=== PATIENT | female | born 1965 | race Caucasian/White ===

== ENCOUNTER 2020-02-24 15:14 | Emergency (ER) | payer BC, MEDICAID ==
[~2020-02-24] VITALS: Ht 177.8 cm; Wt 72.6 kg
[~2020-02-24 15:14] MED LIST: GABA300C10; PAR20T; QUET25TA37
[2020-02-24 15:21] VITALS: BP 126/91
[2020-02-24] MEDS ORDERED: ACETAMINOPHEN 325 MG TAB PO ONE (15:45)
[2020-02-24] MEDS ORDERED: cefTRIAXone SOD 1,000 MG VL IM ONE (16:30)
[2020-02-24] MEDS ORDERED: ONDANSETRON ODT 4 MG TAB PO ONE (16:30)
[2020-02-24] MEDS ORDERED: KETOROLAC TROMETH 60MG/2ML VIAL IM ONE (16:30)
== END 2020-02-24 17:35 | disposition home or self-care (01) ==
LOC: ER 15:14
DX: S66.911A Strain of unspecified muscle, fascia and tendon at wrist and hand level, right hand, initial encounter (principal); S16.1XXA Strain of muscle, fascia and tendon at neck level, initial encounter; S60.512A Abrasion of left hand, initial encounter; S60.511A Abrasion of right hand, initial encounter; V22.4XXA Motorcycle driver injured in collision with two- or three-wheeled motor vehicle in traffic accident, initial encounter; Y93.55 Activity, bike riding; Y92.89 Other specified places as the place of occurrence of the external cause; Y99.8 Other external cause status
CPT/HCPCS: 29125; 70450; 70486; 72125; 73110; 73130; 96372; 99285; J0696; J1885; Q0162

== ENCOUNTER 2025-05-10 15:16 | Emergency (ER) | payer BC ==
[~2025-05-10] VITALS: Ht 177.8 cm; Wt 69.0 kg
[~2025-05-10 15:16] MED LIST changes: +GABA-1250; -GABA300C10
--- NOTE | 2025-05-10 15:40 | ED.PDOC ---
HPI Comments This is a 59 years old female with past medical history of hyperlipidemia, chronic neck and right arm pain presented to the ER with a complaint of intermittent pinch like chest pain since last night. The patient states that the 1st time she felt chest pain last night during the sleep which is pinch like, 3/10 localized the left upper chest not associated with any shortness of breath, dizziness, diaphoresis, nausea or vomiting. She went to urgent care today and the EKG revealed sinus rhythm, RSR in V1 and V2 and came to the ER for further evaluation of chest pain. PCP: Dr. Dejesus Chief Complaint: Chest Pain Time Seen by MD: 15:19 Primary Care Provider: KARO Allergies: Coded Allergies: Penicillin G (Verified Allergy, Unknown, 02/24/20) Uncoded Allergies: BEE STING (Allergy, Unknown, 02/24/20) Home Meds Reported Medications Quetiapine Fumerate (Seroquel) 25 Mg Tab, BID 06/09/13 Paroxetine (PAXIL TABLET) 20 Mg Tb, 40 MG DAILY 06/09/13 [[id number] Mg] (Gabapentin) 300 MG CAP No Conflict Check, MG 04/19/13 Information Source: Patient Mode of Arrival: Ambulatory Severity: Mild Timing: Hours Duration: Since onset Prehospital treatment: 12 Lead EKG Location: Chest (L) Radiation: No Radiation Quality: Sharp Onset: While Asleep Cardiac Risk Factors: Hyperlipidemia PE Risk Factors: None History of: None Modifying Factors: Nothing Associated Signs and Symptoms: None Past Medical History PAST MEDICAL HISTORY: High Lipids Surgical History: Appendectomy [employer] History: No Pertinent [employer]ICER History Family History Family History: Unknown Social History Smoker: Cigarettes, Less Than 1 Pack/Day Alcohol: Occasionally Drugs: Denies Drug Use Lives In: Home Constitutional: denies: chills, diaphoresis, fatigue, fever, malaise, sweats, weakness, others EENTM: denies: blurred vision, double vision, ear bleeding, ear discharge, ear drainage, ear pain, ear ringing, eye pain, eye redness, hearing loss, mouth pain, mouth swelling, nasal discharge, nose bleeding, nose congestion, nose pain, photophobia, tearing, throat pain, throat swelling, voice changes, others Respiratory: denies: cough, hemoptysis, orthopnea, SOB at rest, shortness of breath, SOB with excertion, stridor, wheezing, others Cardiovascular: reports: chest pain; denies: dizzy spells, diaphoresis, Dyspnea on exertion, edema, irregular heart beat, left arm pain, lightheadedness, palpitations, PND, syncope, others Gastrointestinal: denies: abdomen distended, abdominal pain, blood streaked bowels, constipated, diarrhea, dysphagia, difficulty swallowing, hematemesis, melena, nausea, poor appetite, poor fluid intake, rectal bleeding, rectal pain, vomiting, others Genitourinary: denies: abnormal vagina bleeding, burning, dyspareunia, dysuria, flank pain, frequency, hematuria, incontinence, pain, , vagina discharge, urgency, others Neurological: denies: dizziness, fainting, headache, left sided numbness, left sided weakness, numbness, paresthesia, pre-existing deficit, right sided numbness, right sided weakness, seizure, speech problems, tingling, tremors, w eakness, others Musculoskeletal: denies: back pain, gout, joint pain, joint swelling, muscle pain, muscle stiffness, neck pain, others Integumetry: denies: bruises, change in color, change in hair/nails, dryness, laceration, lesions, lumps, rash, wounds, others Allergic/Immunocompromised: denies: Difficulty Healing, Frequent Infections, Hives, Itching, others Hematologic/Lymphatic: denies: anemia, blood clots, easy bleeding, easy bruising, swollen glands, others Endocrine: denies: excessive hunger, excessive sweating, excessive thirst, excessive urination, flushing, intolerance to cold, intolerance to heat, unexplained weight gain, unexplained weight loss, others Psychiatric: denies: anxiety, bipolar disorder, depression, hopeless, panic disorder, schizophrenia, sleepless, suicidal, others Physical Exam General Appearance: Normal HEENT: Normal ENT Inspection, Pharynx Normal, TMs Normal Neck: Full Range of Motion, Non-Tender, Normal, Normal Inspection Respiratory: Chest Non-Tender, Lungs Clear, No Accessory Muscle Use, No Respiratory Distress, Normal Breath Sounds Cardiovascular: No Edema, No JVD, No Murmur, No Gallop, Normal Peripheral Pulses, Regular Rate/Rhythm Breast Exam: Deferred Gastrointestinal: No Organomegaly, Non Tender, No Pulsatile Mass, Normal Bowel Sounds, Soft Genitalia: Deferred Pelvic: Deferred Rectal: Deferred Extremities: No calf tenderness, Normal capillary refill, Normal inspection, Normal range of motion, Non-tender, No pedal edema Neurologic: NOT DONE Cerebellar Function: NOT DONE Reflexes: NOT DONE Skin: NOT DONE Peripheral Pulses: 2+ carotid (R), 2+ carotid (L), 2+ femoral (R), 2+ femoral (L), 2+ dorsalis pedis (R), 2+ dorsalis pedis (L), 2+ Radial (R), 2+ Radial (L), 2+ Brachial (R), 2+ Brachial (L) Lymphatic: NOT DONE EKG EKG : Cardiac Rhythm: NSR ST: Normal Comments Patient refused to do EKG here. Was a procedure done? Was a procedure done?: No CP Differential Dx Differential Diagnosis: N/A Differential Diagnosis: N/A Comment patient is normotensive Differential Diagnosis: Chest Wall Pain, Costochondritis Comment Musculoskeletal chest pain, costochondritis, GERD, gastritis X-Ray, Labs, Meds, VS Vital Signs Date Time Temp Pulse Resp B/P (MAP) Pulse Ox O2 Delivery O2 Flow Rate FiO2 05/10/25 15:18 97.7 74 16 123/70 93 97.7 Lab Test 05/10/25 16:08 Range/Units Troponin I High Sensitivity < 3 L </=34 ng/L X-Ray, Labs, Meds, VS Comment Refused to do EKG here. Chest x-ray revealed normal study and troponin is <3 Time of 1ST Reevaluation: 16:37 Reevaluation 1ST: Improved Patient Education/Counseling: Diagnosis, Treatment Family Education/Counseling: No Family Present Comments This is a 59 years old female presented to the ER the complaint of left-sided pinching like chest pain since last night prior to this visit. The patient had an EKG done in urgent care which revealed normal sinus rhythm and nonspecific ST-T changes The patient refused to do another EKG in the ER Chest x-ray revealed normal study and troponin is unremarkable less than 3 Advised the patient to follow up with PCP in 1 week SEPSIS Sepsis Screen Date sepsis recognized/suspect: May 10, 2025 Time Sepsis recognized/suspect: 1519 Recent Procedure: No On Antibiotic Therapy: No Respiratory Rate >20: No Heart Rate >90: No Temp<36 C (96.8 F) or >38.3 C: No SBP <90 or MAP <65 mmHG: No New Acute Mental Status Change: No Is the patient on CPAP, BIPAP,: No Physician Orders Chest Portable (05/10/25 15:38) Vital Signs Date Time Temp Pulse Resp B/P (MAP) Pulse Ox O2 Delivery O2 Flow Rate FiO2 05/10/25 15:18 97.7 74 16 123/70 93 97.7 Departure 1 Departure Time of Disposition: 18:30 Impression: Primary Impression: Musculoskeletal chest pain Disposition: HOME / SELF CARE / HOMELESS Condition: Fair Critical Care Note Critical Care Time?: No Stability Stability form required: No Heart Score Heart Score: Heart Score Response (Comments) Value History Slightly Suspicious 0 EKG Normal 0 Age 45-64 1 Risk Factors 1 or 2 risk factors 1 Troponin Normal limit 0 Total 2 SARAH FREEMAN RESIDENT May 10, 2025 15:40
--- NOTE | 2025-05-10 16:18 | DVH ---
XY CHEST PORTABLE, HISTORY: Chest pain COMPARISON: None None TECHNICAL DATA: 1 view of the chest was obtained. FINDINGS: Lines and tubes: None Cardiomediastinal silhouette: normal Pulmonary vasculature: normal Lung expansion: normal Lung airspace: normal Lung interstitium: normal Pleura: normal Pneumothorax: no Bones: Unremarkable Other: no IMPRESSION: No acute intrathoracic abnormality.
[2025-05-10 18:50] VITALS: BP 122/69; PULSE 73; RESP 16; TEMP 97.8; O2SAT 94
== END 2025-05-10 18:53 | disposition home or self-care (01) ==
LOC: ER 15:16
DX: R07.89 Other chest pain (principal); E78.5 Hyperlipidemia, unspecified; F17.210 Nicotine dependence, cigarettes, uncomplicated; Z79.899 Other long term (current) drug therapy; Z90.49 Acquired absence of other specified parts of digestive tract; Z88.0 Allergy status to penicillin
CPT/HCPCS: 36415; 71045; 84484